=== PATIENT | female | born 1955 | race Two or more races ===

== ENCOUNTER 2019-02-07 11:37 | Inpatient (IN) | payer OTHER ==
[~2019-02-07] VITALS: Ht 157.5 cm; Wt 69.1 kg
--- NOTE | 2019-02-07 22:30 | NUR ---
ADMISSION NOTE: Pt arrived in stable condition via ambulance on a stretcher @ 2200 . pt c/o of moderate pain, denies any chest pain, nausea or vomiting. Skin is intact except for left knee with surgical dressing and [place] wrap around the surgical site. Meds reconciled and patient information coordinator notified about pt's arrival on the unit.
[2019-02-07] MEDS ORDERED: HYDR-4354 PO (23:59)
[2019-02-07] MEDS ORDERED: SENN-18 PO (23:59)
[2019-02-07] MEDS ORDERED: FAMO20TA8 PO (23:59)
[2019-02-07] MEDS ORDERED: MAG-55 PO (23:59)
[2019-02-07] MEDS ORDERED: MAGN400O6 PO (23:59)
[2019-02-07] MEDS ORDERED: ZOLP5TAB8 PO (23:59)
[2019-02-07] MEDS ORDERED: ASPI-612 PO (23:59)
[2019-02-07] MEDS ORDERED: DOCU100C36 PO (23:59)
[2019-02-07] MEDS ORDERED: DIPH25CA83 PO (23:59)
[2019-02-07] MEDS ORDERED: BISA10SU61 RC (23:59)
[2019-02-08] MEDS: HYDROCODONE/APAP 10-325 MG TABLET PO PRN ×5 (01:35→20:21)
[2019-02-08 05:43] VITALS: BP 104/64
[2019-02-08 07:30] VITALS: BP 102/59
--- NOTE | 2019-02-08 07:40 | NUR ---
Received patient in bed sleeping, Patient is A&O x 4. In NO acute distress. S/P Left knee surgery; dressing intact and dry. No complains of pain and will continue with care.
[2019-02-08] MEDS ORDERED: MAGNESIUM HYDROXIDE 30 ML LIQUID UDC PO PRN (10:15)
[2019-02-08] MEDS ORDERED: Medication Not On Formulary EA (Mag Hydrox/Al Hydrox/Simeth (Maalox Advanced Max-Str Sus PO SCH (10:15)
[2019-02-08] MEDS ORDERED: SENNOSIDES 1 TABLET PO PRN (10:15)
[2019-02-08] MEDS ORDERED: Medication Not On Formulary EA (Diphenhydramine Hcl (Benadryl) 25 MG) PO SCH (10:15)
[2019-02-08] MEDS ORDERED: BISACODYL 10 MG SUPP.RECT RC PRN (10:15)
[2019-02-08] MEDS ORDERED: diphenhydrAMINE 25 MG CAP PO PRN (13:00)
[2019-02-08 16:00] VITALS: BP 155/62
[2019-02-08] MEDS: DOCUSATE SODIUM 100 MG CAPSULE PO SCH (18:04)
[2019-02-08] MEDS: ASPIRIN 325 MG TABLET PO SCH (18:04)
--- NOTE | 2019-02-08 19:00 | NUR ---
Patient on PRN [place] 10/325mg q 4hrs for pain; administered as ordered during shift and effective. Pt. seen by PT/OT today. Left knee dressing intact and dry. Safety measures in place, needs attended, call light left within easy reach, end of shift report given and will continue with care.
[2019-02-08 19:54] VITALS: BP 100/55
[2019-02-08] MEDS: FAMOTIDINE 20 MG TABLET PO SCH (20:19)
[2019-02-08] MEDS ORDERED: ZOLPIDEM 5 MG TABLET PO PRN (21:00)
[2019-02-09] MEDS: HYDROCODONE/APAP 10-325 MG TABLET PO PRN ×5 (00:49→18:14)
[2019-02-09 04:40] VITALS: BP 106/59
[2019-02-09 07:58] LABS: BASOPHILS % (AUTO) 0.4 % (0.0-2.0); EOSINOPHILS # (AUTO) 0.2 K/uL (0.0-0.7); EOSINOPHILS % (AUTO) 2.6 % (0.0-7.0); HEMATOCRIT 31.8 % (31.2-41.9); HEMOGLOBIN 11.2 g/dL (10.9-14.3); LYMPHOCYTES # (AUTO) 1.8 K/uL (20.0-40.0); LYMPHOCYTES % (AUTO) 21.3 % (20.5-51.5); MEAN CORPUSCULAR HEMOGLOBIN 32.3 uug (24.7-32.8); MEAN CORPUSCULAR HGB CONC 35 g/dL (32.3-35.6); MEAN CORPUSCULAR VOLUME 91.9 fL (75.5-95.3); MONOCYTES % (AUTO) 12.1 % (0.0-11.0); NEUTROPHILS # (AUTO) 5.5 K/uL (1.8-8.9); NEUTROPHILS % (AUTO) 63.6 % (38.5-71.5); PLATELET COUNT (AUTO) 266 K/uL (179-408); RED BLOOD CELL COUNT(AUTO) 3.46 MIL/uL (3.63-4.92); WHITE BLOOD COUNT (AUTO) 8.6 K/uL (3.8-11.8)
[2019-02-09] MEDS: FAMOTIDINE 20 MG TABLET PO SCH ×2 (08:03→21:20)
[2019-02-09] MEDS: DOCUSATE SODIUM 100 MG CAPSULE PO SCH ×2 (08:04→16:49)
[2019-02-09] MEDS: ASPIRIN 325 MG TABLET PO SCH ×2 (08:17→16:49)
[2019-02-09 08:18] LABS: THYROID STIMULATING HORMONE 1.53 mIU/mL (0.358-3.740)
[2019-02-09 08:38] LABS: BILIRUBIN,TOTAL 1.2 mg/dL (0.2-1.0); CREATININE 0.6 mg/dL (0.6-1.3); MAGNESIUM 1.8 mg/dL (1.8-2.4); TOTAL PROTEIN, SERUM 7.7 g/dL (6.4-8.2)
[2019-02-09 09:41] VITALS: BP 96/53
--- NOTE | 2019-02-09 17:42 | NUR ---
patient is alert, oriented x4, no distress noted, tolerated PT, OT well, pain is managed with medication and nonpharmacological interventions.
[2019-02-09 17:48] VITALS: BP 107/65
--- NOTE | 2019-02-09 19:40 | NUR ---
Patient received in bed, AAO x4. Not in acute distress or SOB. Able to make needs known. On room air. Complained of pain on her left hip, rated 7/10 in numeric scale. Physical assessment done. Fall prevention observed. Safety measures maintained. Bed in low and lock position, alarm on, side rails up x2 for safety. Call light and frequently used items within reach. Continue to monitor
--- NOTE | 2019-02-09 21:19 | NUR ---
Patient asked for another strong pain medication, stated, "N[place] is only effective for 3 hours, I want some other pain medication to keep me pain free". Contacted Dr. Queen about patient's request and patient's allergy and received order of OxyContin 10 mg Q8H ATC. Called outside pharmacy to verity medication. Pharmacy asked to contact Dr. Queen about patient's allergy to codeine. Dr Queen confirmed the order. Educated patient about the signs and symptoms of allergy and will monitor patient closely.
[2019-02-09] MEDS: OXYCODONE HCL 10 MG TAB.SR.12H PO SCH (21:20)
[2019-02-09 21:34] VITALS: BP 96/65
[2019-02-10 04:00] VITALS: BP 97/74
[2019-02-10] MEDS ORDERED: OXYCODONE HCL 10 MG TAB.SR.12H PO ONE (05:31)
[2019-02-10] MEDS: OXYCODONE HCL 10 MG TAB.SR.12H PO SCH ×3 (05:35→22:10)
[2019-02-10] MEDS: DOCUSATE SODIUM 100 MG CAPSULE PO SCH ×2 (08:20→16:34)
[2019-02-10] MEDS: HYDROCODONE/APAP 10-325 MG TABLET PO PRN ×3 (08:20→21:00)
[2019-02-10] MEDS: ASPIRIN 325 MG TABLET PO SCH ×2 (08:20→16:34)
[2019-02-10] MEDS: FAMOTIDINE 20 MG TABLET PO SCH ×2 (08:22→20:59)
[2019-02-10 08:46] VITALS: BP 105/72
--- NOTE | 2019-02-10 10:19 | NUR ---
INDIVIDUALIZE OVERALL PLAN OF CARE
[2019-02-10 16:44] VITALS: BP 95/64
--- NOTE | 2019-02-10 17:33 | NUR ---
PATIENT IS ALERT, ORIENTED X4, NO CHANGES NOTED, TOLERATED PT, OT WELL, NO ACUTE DISTRESS NOTED, PAIN IS MANAGED WITH PAIN MEDICATION AND WITH NONPHARMACOLOGICAL INTERVENTIONS
--- NOTE | 2019-02-10 19:00 | NUR ---
Received patient awake, AAO x 4, able to verbalized needs and concern. Presented complaint of tolerable pain on the left knee, dressing dry and intact. Able to move/turn self on bed independently. Safety measure and fall precaution maintained. Continue acre as planned.
[2019-02-10 19:51] VITALS: BP 109/66
--- NOTE | 2019-02-10 21:00 | NUR ---
Had good shower today, tolerated well.
[2019-02-11] MEDS: HYDROCODONE/APAP 10-325 MG TABLET PO PRN ×3 (01:33→17:24)
[2019-02-11 04:51] VITALS: BP 102/65
[2019-02-11 04:57] LABS: *BILIRUBIN,URIN NEGATIVE (NEGATIVE); *BLOOD, URINE NEGATIVE (NEGATIVE); *CLARITY,URINE SLIGHTLY CLOUDY (CLEAR); *COLOR,URINE YELLOW (YELLOW); *KETONES,URINE NEGATIVE (NEGATIVE); LEUKOCYTE ESTERASE ,URINE TRACE (NEGATIVE); NITRITE, URINE NEGATIVE (NEGATIVE); UGLUCOSE NEGATIVE (NEGATIVE)
[2019-02-11 05:43] LABS: RBC,URINE 0-3 /HPF (0-3); WBC,URINE 0-3 /HPF (0-3)
[2019-02-11 05:44] LABS: BACTERIA,URINE FEW /HPF (NONE SEEN); SQUAMOUS EPITHELIAL CELL,UR FEW /HPF (NONE SEEN); URINE AMORPHOUS PHOSPHATES FEW /HPF
[2019-02-11] MEDS: OXYCODONE HCL 10 MG TAB.SR.12H PO SCH ×3 (06:04→21:45)
--- NOTE | 2019-02-11 06:30 | NUR ---
Shift End Report: Vs stable. Medicated twice with [place] with help. Slept good after shower. No further complaint presented. All needs attended and met. No significant event reported all night. Continue current rehab plan of care.
[2019-02-11 07:44] VITALS: BP 95/56
[2019-02-11] MEDS: ASPIRIN 325 MG TABLET PO SCH ×2 (08:10→17:23)
[2019-02-11] MEDS: DOCUSATE SODIUM 100 MG CAPSULE PO SCH ×2 (08:10→17:23)
[2019-02-11] MEDS: FAMOTIDINE 20 MG TABLET PO SCH ×2 (08:11→20:46)
--- NOTE | 2019-02-11 08:19 | NUR ---
Patient in bed, awake, alert, oriented x3, not in any form of distress, on room air. Due medications administered and patient tolerated well. Complained of pain on left knee and given PRN pain medication as ordered. Assisted patient to the bathroom and back to bed. Call light and frequently used items placed within reach.
[2019-02-11 15:12] VITALS: BP 93/56
--- NOTE | 2019-02-11 19:30 | NUR ---
Received patient awake, in bed, visitor at bedside. Denies any pain/discomforts at this time. Safety measure and fall precaution maintained. Continue care as planned.
[2019-02-11 20:15] VITALS: BP 97/56
[2019-02-12 04:38] VITALS: BP 97/64
[2019-02-12] MEDS: HYDROCODONE/APAP 10-325 MG TABLET PO PRN ×4 (04:51→19:50)
[2019-02-12] MEDS: OXYCODONE HCL 10 MG TAB.SR.12H PO SCH ×3 (06:18→21:51)
[2019-02-12 07:42] VITALS: BP 113/63
[2019-02-12] MEDS: FAMOTIDINE 20 MG TABLET PO SCH ×2 (08:05→20:32)
[2019-02-12] MEDS: ASPIRIN 325 MG TABLET PO SCH ×2 (08:05→17:00)
[2019-02-12] MEDS: DOCUSATE SODIUM 100 MG CAPSULE PO SCH ×2 (08:05→17:00)
[2019-02-12 16:07] VITALS: BP 124/80
--- NOTE | 2019-02-12 18:04 | NUR ---
PATIENT IS ALERT, ORIENTED X4, STATUS POST LEFT KNEE SURGERY, PAIN IS MANAGED WITH PAIN MEDICATIONS AND WITH NONPHARMACOLOGICAL INTERVENTIONS, WATCHING TV, TALKING TO FAMILY. PATIENT IS ON OXYCONTIN AROUND THE CLOCK, NO ADVERSE REACTIONS NOTED, SUCH DIZZINESS, NO OVER SLEEPINESS, PATIENT PARTICIPATED IN OT, PT, TOLERATED WELL, NO CHANGES NOTED.
--- NOTE | 2019-02-12 19:30 | NUR ---
Awake during initial rounds, busy talking on her cell phone. Not in distress. No s/s of pain/discomforts noted. Safety measure and fall precaution maintained. Continue care as planned.
--- NOTE | 2019-02-12 19:50 | NUR ---
[place] given as needed and ordered for complaint of left knee pain. Will monitor.
[2019-02-12 19:56] VITALS: BP 110/65
[2019-02-13] MEDS: HYDROCODONE/APAP 10-325 MG TABLET PO PRN ×3 (04:19→17:15)
[2019-02-13 04:50] VITALS: BP 119/75
[2019-02-13] MEDS: OXYCODONE HCL 10 MG TAB.SR.12H PO SCH ×3 (06:03→21:06)
--- NOTE | 2019-02-13 06:10 | NUR ---
Shift End Report: Medicated twice with [place] as ordered and needed with help. No s/s of adverese reaction noted. No further complaint presented. Slept well. All needs attended and met. No significant event reported all night. Continue current rehab plan of care.
[2019-02-13 08:02] VITALS: BP 112/75
[2019-02-13] MEDS: DOCUSATE SODIUM 100 MG CAPSULE PO SCH ×2 (08:49→17:04)
[2019-02-13] MEDS: ASPIRIN 325 MG TABLET PO SCH ×2 (08:49→17:04)
[2019-02-13] MEDS: FAMOTIDINE 20 MG TABLET PO SCH ×2 (08:49→21:05)
--- NOTE | 2019-02-13 10:43 | NUR ---
Patient continue on pain management prior to therapy and if needed with good effect. not in distress. will continue monitor
[2019-02-13 16:04] VITALS: BP 115/73
[2019-02-13 21:10] VITALS: BP 98/64
--- NOTE | 2019-02-13 21:11 | NUR ---
Received pt resting in bed. AAO x4. Visitor at bedside. No acute distress noted. C/o 6/10 pain on the left knee. Routine pain med given as ordered. Pt's BP 98/64, asymptomatic. Pt denies dizziness. Safety measures maintained. Call light and personal belongings within reach. Will continue to monitor.
[2019-02-14] MEDS: HYDROCODONE/APAP 10-325 MG TABLET PO PRN ×4 (01:06→19:48)
[2019-02-14 04:30] VITALS: BP 100/67
[2019-02-14] MEDS: OXYCODONE HCL 10 MG TAB.SR.12H PO SCH ×3 (05:03→21:24)
--- NOTE | 2019-02-14 06:54 | NUR ---
Pt slept comfortably at night. All needs attended to promptly. Wound care rendered and dressing changed. No s/s of infection noted. Will endorse accordingly to oncoming shift. Will continue to monitor.
[2019-02-14 07:47] VITALS: BP 109/70
[2019-02-14] MEDS: FAMOTIDINE 20 MG TABLET PO SCH ×2 (08:11→20:23)
[2019-02-14] MEDS: ASPIRIN 325 MG TABLET PO SCH ×2 (08:11→16:11)
[2019-02-14] MEDS: DOCUSATE SODIUM 100 MG CAPSULE PO SCH ×2 (08:11→16:11)
--- NOTE | 2019-02-14 08:18 | NUR ---
Received patient awake, alert, oriented x 3, not in any distress. Needs attended to promptly. Complained of 5/10 pain on the left knee and given PRN pain medication as ordered. Due medications administered and tolerated well. With clean and dry surgical dressing on left knee. Call light and frequently used items placed within reach. Safety measures maintained.
--- NOTE | 2019-02-14 15:03 | NUR ---
INTERDISCIPLINARY TEAM CONFERENCE
[2019-02-14 15:52] VITALS: BP 99/63
--- NOTE | 2019-02-14 19:30 | NUR ---
Received patient awake, alert and oriented x 4, very pleasant, calm and cooperative. Presented tolerable pain on the left knee this time. Will monitor. Safety measures and fall precaution maintained. Continue care as planned.
[2019-02-14 20:00] VITALS: BP 102/68
[2019-02-15] MEDS: HYDROCODONE/APAP 10-325 MG TABLET PO PRN ×4 (02:14→20:57)
[2019-02-15 04:00] VITALS: BP 112/73
[2019-02-15] MEDS: OXYCODONE HCL 10 MG TAB.SR.12H PO SCH ×3 (05:52→21:49)
--- NOTE | 2019-02-15 06:20 | NUR ---
Shift End Report: Vs stable. Medicated once for pain as needed with help. Slept in between care. No further complaint presented. All needs attended and met. No significant event reported. Continue current rehab plan of care.
[2019-02-15 07:30] VITALS: BP 102/54
[2019-02-15] MEDS: ASPIRIN 325 MG TABLET PO SCH ×2 (09:35→16:40)
[2019-02-15] MEDS: FAMOTIDINE 20 MG TABLET PO SCH ×2 (09:35→20:58)
[2019-02-15] MEDS: DOCUSATE SODIUM 100 MG CAPSULE PO SCH ×2 (09:35→16:40)
[2019-02-15 16:54] VITALS: BP 102/63
--- NOTE | 2019-02-15 19:30 | NUR ---
Awake during initial rounds. No complaint presented at this time, busy talking in her cell phone. Continue care as planned.
[2019-02-15 19:50] VITALS: BP 113/71
[2019-02-16] MEDS: HYDROCODONE/APAP 10-325 MG TABLET PO PRN ×4 (04:42→19:24)
[2019-02-16 05:13] VITALS: BP 115/70
[2019-02-16] MEDS: OXYCODONE HCL 10 MG TAB.SR.12H PO SCH ×3 (06:29→21:45)
[2019-02-16 08:00] VITALS: BP 102/58
[2019-02-16] MEDS: ASPIRIN 325 MG TABLET PO SCH ×2 (08:42→16:56)
[2019-02-16] MEDS: FAMOTIDINE 20 MG TABLET PO SCH ×2 (08:43→20:19)
[2019-02-16] MEDS: DOCUSATE SODIUM 100 MG CAPSULE PO SCH ×2 (08:43→16:56)
[2019-02-16 16:00] VITALS: BP 101/59
[2019-02-16 20:41] VITALS: BP 105/68
[2019-02-17 04:18] VITALS: BP 102/76
[2019-02-17] MEDS: OXYCODONE HCL 10 MG TAB.SR.12H PO SCH ×3 (05:30→22:12)
--- NOTE | 2019-02-17 06:17 | NUR ---
Shift End Report: Slept good. Vs stable. Medicated once for pain. No further complaint presented. All needs attended and met. No significant event reported all night. Continue current rehab plan of care.
[2019-02-17 08:00] VITALS: BP 102/65
[2019-02-17] MEDS: ASPIRIN 325 MG TABLET PO SCH ×2 (08:20→16:49)
[2019-02-17] MEDS: HYDROCODONE/APAP 10-325 MG TABLET PO PRN ×3 (08:21→20:14)
[2019-02-17] MEDS: FAMOTIDINE 20 MG TABLET PO SCH ×2 (08:21→20:14)
[2019-02-17] MEDS: DOCUSATE SODIUM 100 MG CAPSULE PO SCH ×2 (08:21→16:49)
--- NOTE | 2019-02-17 09:15 | NUR ---
Patient noted sitting up in bed, complaints of pain, PRN [place] given, no signs of distress noted, call light in reach, bed locked and in lowest position, all AM medications taken, all needs met at this time
--- NOTE | 2019-02-17 19:30 | NUR ---
Up and awake. Brother at bedside. No complaint presented this time. Safety measures and fall precaution maintained. Continue care as planned.
[2019-02-17 20:55] VITALS: BP 105/52
[2019-02-18] MEDS: HYDROCODONE/APAP 10-325 MG TABLET PO PRN ×3 (04:41→16:39)
[2019-02-18 05:22] VITALS: BP 118/71
[2019-02-18] MEDS: OXYCODONE HCL 10 MG TAB.SR.12H PO SCH ×3 (05:53→21:11)
--- NOTE | 2019-02-18 05:56 | NUR ---
Shift End Report: Medicated twice with [place] besides Oxycodone routine with relief. No further complaint presented. All needs attended and met. Slept late. Continue current rehab plan of care.
[2019-02-18 07:39] VITALS: BP 93/56
[2019-02-18] MEDS: DOCUSATE SODIUM 100 MG CAPSULE PO SCH ×2 (08:56→16:36)
[2019-02-18] MEDS: ASPIRIN 325 MG TABLET PO SCH ×2 (08:56→16:36)
[2019-02-18] MEDS: FAMOTIDINE 20 MG TABLET PO SCH ×2 (08:57→20:26)
[2019-02-18 15:54] VITALS: BP 115/71
--- NOTE | 2019-02-18 20:00 | NUR ---
Patient received into care, sitting up in bed, resting comfortably. Patient is alert/oriented x4 and has no complaints of pain at this time. Safety and fall precaution measures are in place. Call light and personal items are within reach at all times. Will continue to monitor.
[2019-02-18] MEDS: HEPARIN SODIUM,PORCINE 5,000 UNITS/ML VIAL SQ SCH (20:27)
[2019-02-18 20:41] VITALS: BP 106/65
--- NOTE | 2019-02-19 05:30 | NUR ---
Patient complaining that incision feels like it is "burning." Nurse inspected incision during weekly photo documentation and found that the incision site has no redness, abnormal warmth, or oozing of foul drainage. Also, there was no drainage on bandage. Nurse reassured patient that incision site is looking well with no signs or symptoms of infection.
[2019-02-19 05:59] VITALS: BP 110/63
[2019-02-19] MEDS: OXYCODONE HCL 10 MG TAB.SR.12H PO SCH ×3 (06:05→22:09)
--- NOTE | 2019-02-19 06:36 | NUR ---
Patient slept throughout night comfortably with no complaints of pain or discomfort after prescribed order of analgesic provided at 2200h. Patient was compliant with all nursing care and all nursing needs were addressed promptly. All prescribed medications were given as ordered and tolerated well with no adverse side effects verbalized or observed. All safety and fall precaution measures remain in place. Call light and personal items remain within reach at all times.
[2019-02-19 07:24] LABS: CREATININE 0.7 mg/dL (0.6-1.3); POTASSIUM 4.1 mmol/L (3.5-5.1)
[2019-02-19 07:27] LABS: BASOPHILS # (AUTO) 0.1 K/uL (0.0-8.0); EOSINOPHILS # (AUTO) 0.3 K/uL (0.0-0.7); EOSINOPHILS % (AUTO) 4.7 % (0.0-7.0); HEMATOCRIT 34.2 % (31.2-41.9); HEMOGLOBIN 11.4 g/dL (10.9-14.3); LYMPHOCYTES # (AUTO) 2.4 K/uL (20.0-40.0); LYMPHOCYTES % (AUTO) 38.1 % (20.5-51.5); MEAN CORPUSCULAR HEMOGLOBIN 31.1 uug (24.7-32.8); MEAN CORPUSCULAR HGB CONC 34 g/dL (32.3-35.6); MONOCYTES # (AUTO) 0.6 K/uL (2.0-10.0); NEUTROPHILS # (AUTO) 2.9 K/uL (1.8-8.9); NEUTROPHILS % (AUTO) 46.2 % (38.5-71.5); PLATELET COUNT (AUTO) 471 K/uL (179-408); RED BLOOD CELL COUNT(AUTO) 3.68 MIL/uL (3.63-4.92); WHITE BLOOD COUNT (AUTO) 6.3 K/uL (3.8-11.8)
[2019-02-19] MEDS: ASPIRIN 325 MG TABLET PO SCH ×2 (08:20→16:36)
[2019-02-19] MEDS: FAMOTIDINE 20 MG TABLET PO SCH ×2 (08:20→20:20)
[2019-02-19] MEDS: DOCUSATE SODIUM 100 MG CAPSULE PO SCH ×2 (08:20→16:36)
[2019-02-19] MEDS: HYDROCODONE/APAP 10-325 MG TABLET PO PRN ×2 (08:20→19:27)
[2019-02-19] MEDS: HEPARIN SODIUM,PORCINE 5,000 UNITS/ML VIAL SQ SCH ×2 (08:21→20:26)
[2019-02-19 08:34] VITALS: BP 112/70
--- NOTE | 2019-02-19 13:55 | NUR ---
Patient continue pain management prior to therapy for ambulation and ADL activity. tolerated well. not in distress. Seen and examined by hospitalist. no new order. will continue monitor
[2019-02-19 16:07] VITALS: BP 100/64
--- NOTE | 2019-02-19 19:30 | NUR ---
Received patient awake, alert and oriented x 4 during initial rounds. Denies any pain at this time. Assisted to the BR, voided good, no problem. Safety measure and fall precaution maintained. Continue care as planned.
[2019-02-19 20:13] VITALS: BP 105/62
[2019-02-20] MEDS: HYDROCODONE/APAP 10-325 MG TABLET PO PRN ×3 (04:49→18:48)
[2019-02-20 05:49] VITALS: BP 122/62
[2019-02-20] MEDS: OXYCODONE HCL 10 MG TAB.SR.12H PO SCH ×3 (06:04→21:33)
--- NOTE | 2019-02-20 06:28 | NUR ---
Shift End Report: Slept good. VS stable. Medicated twice with [place] as needed for pain with help. No significant evcent reported all night. All needs attended and met. Continue current rehab plan of care.
[2019-02-20 08:00] VITALS: BP 108/65
[2019-02-20] MEDS: FAMOTIDINE 20 MG TABLET PO SCH ×2 (09:54→21:24)
[2019-02-20] MEDS: ASPIRIN 325 MG TABLET PO SCH ×2 (09:54→17:55)
[2019-02-20] MEDS: DOCUSATE SODIUM 100 MG CAPSULE PO SCH ×2 (09:54→17:55)
[2019-02-20] MEDS: HEPARIN SODIUM,PORCINE 5,000 UNITS/ML VIAL SQ SCH ×2 (09:59→21:26)
--- NOTE | 2019-02-20 11:44 | NUR ---
Patient is A&Ox 4, No acute distress. Vital signs taken and stable. Due meds administered patient on [place] 10/325mg PRN PO 1 tab q 4hrs for pain and tolerated well. Left knee dressing intact and dry. Pt. with PT/OT as ordered. Pt. ambulatory with a walker. Needs met, safety measures in place. Pt. has F/U appointment with surgeon today at 2:30; paper works done and will continue with care.
[2019-02-20 15:41] VITALS: BP 93/63
--- NOTE | 2019-02-20 19:25 | NUR ---
Patient came back from appointment with Dr. Lebron at at 6:00pm. With an order to continue PT treatment. Needs met, call light at bed side and will continue with care.
[2019-02-20 19:55] VITALS: BP 94/61
[2019-02-21 04:00] VITALS: BP 127/59
[2019-02-21] MEDS: OXYCODONE HCL 10 MG TAB.SR.12H PO SCH ×2 (05:38→13:23)
[2019-02-21 07:30] VITALS: BP 104/68
[2019-02-21] MEDS: ASPIRIN 325 MG TABLET PO SCH (09:11)
[2019-02-21] MEDS: FAMOTIDINE 20 MG TABLET PO SCH (09:11)
[2019-02-21] MEDS: DOCUSATE SODIUM 100 MG CAPSULE PO SCH (09:11)
[2019-02-21] MEDS: HEPARIN SODIUM,PORCINE 5,000 UNITS/ML VIAL SQ SCH (09:17)
[2019-02-21] MEDS ORDERED: HYDROCODONE/APAP 10-325 MG TABLET PO PRN (10:00)
--- NOTE | 2019-02-21 14:14 | NUR ---
Patient discharge to home via private transport c/o of insurance in stable condition around 130pm. Medication list and pain medicine prescription given. Fax to pharmacy. Medication and FF UP instruction given. verbalize understanding. Belongings given. MD Queen and MD Shaw notified.
== END 2019-02-21 13:30 | disposition home health service (06) | DRG 560 ==
PROVIDERS: ADMIT Physical Medicine & Rehabilitation Pain Medicine; ATTEND Physical Medicine & Rehabilitation Pain Medicine
DX: Z47.1 Aftercare following joint replacement surgery (principal); E44.0 Moderate protein-calorie malnutrition; D64.89 Other specified anemias; M17.32 Unilateral post-traumatic osteoarthritis, left knee; T14.90XS Injury, unspecified, sequela; X58.XXXS Exposure to other specified factors, sequela; E66.3 Overweight; Z68.27 Body mass index [BMI] 27.0-27.9, adult; Z82.49 Family history of ischemic heart disease and other diseases of the circulatory system; Z96.652 Presence of left artificial knee joint; Z80.1 Family history of malignant neoplasm of trachea, bronchus and lung; R26.2 Difficulty in walking, not elsewhere classified
CPT/HCPCS: 36415; 82652; 83735; 84100; 84443; 85025; 87086; J1644